=== PATIENT | female | born 1990 | race African-American/Black ===

== ENCOUNTER 2016-07-01 17:48 | Emergency (ER) | payer SELFPAY ==
[~2016-07-01] VITALS: Ht 157.5 cm; Wt 68.0 kg
[2016-07-01 18:37] VITALS: BP 133/79
[2016-07-01] MEDS ORDERED: TRAM1TAB49 PO (19:18)
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
== END 2016-07-01 19:19 | disposition home or self-care (01) ==
LOC: ER 17:48
DX: S60.221A Contusion of right hand, initial encounter (principal); J45.909 Unspecified asthma, uncomplicated; Y04.0XXA Assault by unarmed brawl or fight, initial encounter; Y93.89 Activity, other specified; Y92.89 Other specified places as the place of occurrence of the external cause; Y99.8 Other external cause status
CPT/HCPCS: 73130; 99284-25

== ENCOUNTER 2016-08-14 14:05 | Emergency (ER) | payer SELFPAY ==
[~2016-08-14] VITALS: Ht 157.5 cm; Wt 63.5 kg
[~2016-08-14 14:05] MED LIST: TRAM1TAB49 PO
[2016-08-14] MEDS ORDERED: IV NORMAL SALINE 1000ML BAG 1,000 ML IV SCH (14:52)
[2016-08-14] MEDS ORDERED: ACETAMINOPHEN 325 MG TABLET. PO ONE (15:00)
[2016-08-14] MEDS ORDERED: ONDANSETRON PF 4 MG/2 ML VIAL. IV ONE (15:00)
[2016-08-14 15:05] LABS: BILIRUBIN,URINE NEGATIVE (NEG); GLUCOSE,URINE NEGATIVE (NEG); NITRITE,URINE NEGATIVE (NEG); PROTEIN,URINE NEGATIVE (NEG-TRACE); UROBILINOGEN,URINE 0.2 mg/dL (0.2 mg/dL)
--- NOTE | 2016-08-14 15:05 | PHYS DOC ---
Past Medical History Past Medical History: Asthma Past Surgical History: No Surgical History Alcohol Use: Occasionally Drug Use: None Adult General Chief Complaint Chief Complaint: NAUSEA/VOMITING/DIARRHA HPI HPI Patient is a 26 year old female who presents with complaint of nausea, vomiting , and headaches for the past week. Patient states her symptoms have been persistent during this time. Patient denies any fevers or diarrhea associated with symptoms. Patient denies any sick contacts. Patient states that her last menstrual period was "4 months ago." Patient states that this is normal for her as she had been on Depo-Provera and states that she recently came off of it over 4 months ago. Patient does not feel that she has any chance of being though she does admit to unprotected sexual intercourse over the past 4 months. Patient denies any urinary symptoms. Patient states that she is having lower pelvic pain currently and has had thickened vaginal discharge but denies any vaginal bleeding. Patient rates her pain as 7 out of 10 currently. Patient has not taken any medications to help with her symptoms today. Review of Systems Review of Systems Constitutional: Denies fever or chills [] Eyes: Denies change in visual acuity, redness, or eye pain [] HENT: Denies nasal congestion or sore throat [] Respiratory: Denies cough or shortness of breath [] Cardiovascular: Denies chest pain or edema [] GI: Abdominal pain, nausea, vomiting, denies bloody stools or diarrhea [] : Denies dysuria or hematuria [] Musculoskeletal: Denies back pain or joint pain [] Integument: Denies rash or skin lesions [] Neurologic: Headache, denies focal weakness or sensory changes [] Current Medications Current Medications Current Medications Medications (Trade) Dose Ordered Sig/Jayme Start Time Stop Time Status Last Admin Dose Admin Acetaminophen (Tylenol) 650 mg 1X ONCE 08/14/16 15:00 08/14/16 15:03 DC 08/14/16 15:24 650 MG Metronidazole (Flagyl) 500 mg 1X ONCE 08/14/16 17:00 08/14/16 17:01 DC Ondansetron HCl 4 mg 4 mg 1X ONCE 08/14/16 15:00 08/14/16 15:03 DC 08/14/16 15:24 4 MG Sodium Chloride (Iv Sodium Chloride 0.9% 1000ml Bag) 1,000 ml @ 1,000 mls/hr Q1H 08/14/16 14:52 08/14/16 15:51 DC 08/14/16 15:23 1,000 MLS/HR Allergies Allergies Allergies Coded Allergies Type Severity Reaction Last Updated Verified No Known Drug Allergies 07/01/16 No Physical Exam Physical Exam Constitutional: Alert, afebrile, no acute distress. [] HENT: Normocephalic, atraumatic, bilateral external ears normal, oropharynx moist, no oral exudates, nose normal. [] Eyes: PERRLA, EOMI, conjunctiva normal, no discharge. [] Neck: Normal range of motion, no tenderness, supple, no stridor. [] Cardiovascular:Heart rate regular rhythm, no murmur [] Lungs & Thorax: Bilateral breath sounds clear to auscultation [] Abdomen: Bowel sounds normal, soft, suprapubic tenderness to palpation, no masses, no pulsatile masses. Pelvic: Normal external exam, no visualized gross blood or purulent discharge, midline tenderness to palpation on bimanual exam. [] Skin: Warm, dry, no erythema, no rash. [] Back: No tenderness, no CVA tenderness. [] Extremities: No tenderness, no cyanosis, no clubbing, ROM intact, no edema. [] Neurologic: Alert and oriented X 3, normal motor function, normal sensory function, no focal deficits noted. [] Current Patient Data Vital Signs Vital Signs Date Time Temp Pulse Resp B/P Pulse Ox O2 Delivery O2 Flow Rate FiO2 08/14/16 16:45 72 25 111/59 99 08/14/16 14:45 Room Air 08/14/16 14:35 98.5 98.5 Lab Values Laboratory Tests Test 08/14/16 13:41 08/14/16 14:35 08/14/16 15:01 POC Urine HCG, Qualitative Hcg positive (Negative) Urine Color Yellow Urine Clarity Clear Urine pH 6.0 Urine Specific [place] 1.025 Urine Protein Negativemg/dL (NEG-TRACE) Urine Glucose (UA) Negativemg/dL (NEG) Urine Ketones (Stick) Negativemg/dL (NEG) Urine Blood Negative (NEG) Urine Nitrite Negative (NEG) Urine Bilirubin Negative (NEG) Urine Urobilinogen Dipstick 0.2mg/dL (0.2 mg/dL) Urine Leukocyte Esterase Negative (NEG) Urine RBC 0/HPF (0-2) Urine WBC 1-4/HPF (0-4) Urine Squamous Epithelial Cells Mod/LPF Urine Bacteria Few/HPF (0-FEW) Urine Mucus Slight/LPF White Blood Count 12.3x10^3/uL (4.0-11.0) H Red Blood Count 3.48x10^6/uL (3.50-5.40) L Hemoglobin 10.8g/dL (12.0-15.5) L Hematocrit 31.7% (36.0-47.0) L Mean Corpuscular Volume 91fL (79-100) Mean Corpuscular Hemoglobin 31pg (25-35) Mean Corpuscular Hemoglobin Concent 34g/dL (31-37) Red Cell Distribution Width 13.0% (11.5-14.5) Platelet Count 324x10^3/uL (140-400) Neutrophils (%) (Auto) 78% (31-73) H Lymphocytes (%) (Auto) 13% (24-48) L Monocytes (%) (Auto) 7% (0-9) Eosinophils (%) (Auto) 2% (0-3) Basophils (%) (Auto) 1% (0-3) Neutrophils # (Auto) 9.5x10^3uL (1.8-7.7) H Lymphocytes # (Auto) 1.5x10^3/uL (1.0-4.8) Monocytes # (Auto) 0.8x10^3/uL (0.0-1.1) Eosinophils # (Auto) 0.3x10^3/uL (0.0-0.7) Basophils # (Auto) 0.1x10^3/uL (0.0-0.2) Maternal Serum HCG Beta Subunit 67000qLA/mL (0-6) H Sodium Level 138mmol/L (136-145) Potassium Level 3.8mmol/L (3.5-5.1) Chloride Level 103mmol/L (98-107) Carbon Dioxide Level 24mmol/L (21-32) Anion Gap 11 (6-14) Blood Urea Nitrogen 8mg/dL (7-20) Creatinine 0.6mg/dL (0.6-1.0) Estimated GFR (Cockcroft-Gault) 145.1 BUN/Creatinine Ratio 13 (6-20) Glucose Level 79mg/dL (70-99) Calcium Level 8.8mg/dL (8.5-10.1) Magnesium Level 1.8mg/dL (1.8-2.4) Total Bilirubin 0.2mg/dL (0.2-1.0) Aspartate Amino Transferase (AST) 12U/L (15-37) L Alanine Aminotransferase (ALT) 23U/L (14-59) Alkaline Phosphatase 57U/L (46-116) Total Protein 7.7g/dL (6.4-8.2) Albumin 3.3g/dL (3.4-5.0) L Albumin/Globulin Ratio 0.8 (1.0-1.7) L Laboratory Tests 08/14/16 15:01 Laboratory Tests 08/14/16 15:01 Microbiology 08/14/16 Wet Prep - Final, Complete EKG EKG Not performed [] Radiology/Procedures Radiology/Procedures [facility] [address] [place], [place] [id number] IMAGING REPORT Signed PATIENT: APARNA BANGURA ACCOUNT: [id number] : 1990 LOCATION: ER AGE: 26 SEX: F EXAM STATUS: REG ER ORD. PHYSICIAN: SHANAE ORTEGA MD REASON: last menstrual period 4 months ago, positive test PROCEDURE: PREG 1ST TRIMESTER Pelvic ultrasound, 08/14/2016: History: Nausea, positive test Transabdominal scans were obtained. The uterus is enlarged. It contains a single fetus demonstrating a crown-rump length of 6.9 cm. This suggests a gestational age of 13 weeks and 1 day, yielding a sonographic EDC of 02/18/2017. activity and heart motion were seen. The heart rate is 178 bpm. The placenta lies posteriorly. A normal amount of amniotic fluid is present. There is moderate echogenic myometrial thickening along the posterior aspect of the placenta. There is blood flow in this region. The features suggest a uterine fibroid. The cervix is not adequately delineated. IMPRESSION: 1. Single viable intrauterine fetus of 13 weeks gestational age. 2. Myometrial thickening posteriorly suggesting a uterine fibroid. Retroplacental hemorrhage is less likely. Sonographic follow-up is suggested. DICTATED and SIGNED BY: ROS CORNELL MD DATE: 08/14/16 1620 CC: SHANAE ORTEGA MD; NO PCP ~ [] Course & Med Decision Making Course & Med Decision Making Pertinent Labs and Imaging studies reviewed. (See chart for details) Patient's ultrasound showed that the patient was 13 weeks and 1 day estimated gestational age. Patient was also found to have evidence of bacterial vaginosis and started on Flagyl in the emergency department. Patient will be discharged home with a seven-day course of Flagyl and was referred to Dr. Keller of [facility] for follow-up. Advised return emergency department for any worsening symptoms. Patient voiced understanding and in agreement with treatment plan. Dragon Disclaimer Dragon Disclaimer This electronic medical record was generated, in whole or in part, using a voice recognition dictation system. Departure Departure Impression: Primary Impression: Intrauterine Additional Impressions: Bacterial vaginosis Abdominal pain during Disposition: HOME, SELF-CARE Condition: IMPROVED Referrals: NO PCP (PCP) HEIDY KELLER MD Patient Instructions: Abdominal Pain During , Bacterial Vaginosis Additional Instructions: Follow-up in one week with Dr. Keller of [facility] for care. Your ultrasound showed that at today's appointment you are 13 weeks and 1 day into your . Return to the emergency department for any worsening symptoms. Scripts Ondansetron (Zofran Odt)4 Mg Tab.rapdis1 Tab SL Q8HRS PRN NAUSEA/VOMITING #15 TAB Prov:SHANAE ORTEGA MD 08/14/16 Metronidazole (Flagyl)500 Mg Tablet1 Tab PO BID #14 TAB Prov:SHANAE ORTEGA MD 08/14/16 Problem Qualifiers Additional Impressions: Abdominal pain during Trimester: first trimester Qualified Code: O26.891 - Other specified related conditions, first trimester SHANAE ORTEGA MD Aug 14, 2016 15:05
[2016-08-14 15:11] LABS: BASO # 0.1 x10^3/uL (0.0-0.2); BASO % 1 % (0-3); EOS % 2 % (0-3); HEMATOCRIT 31.7 % (36.0-47.0); HEMOGLOBIN 10.8 g/dL (12.0-15.5); LYMPH # 1.5 x10^3/uL (1.0-4.8); LYMPH % 13 % (24-48); MEAN CORPUSCULAR HEMOGLOBIN 31 pg (25-35); MEAN CORPUSCULAR HGB CONC 34 g/dL (31-37); MEAN CORPUSCULAR VOLUME 91 fL (79-100); MONO % 7 % (0-9); NEUT % 78 % (31-73); PLATELET COUNT 324 x10^3/uL (140-400); RED BLOOD COUNT 3.48 x10^6/uL (3.50-5.40); WHITE BLOOD COUNT 12.3 x10^3/uL (4.0-11.0)
[2016-08-14 15:19] LABS: BACTERIA,URINE FEW /HPF (0-FEW); RBC,URINE 0 /HPF (0-2)
[2016-08-14 15:20] LABS: SQUAMOUS EPITHELIAL CELL,UR MOD /LPF
[2016-08-14 15:23] LABS: CALCIUM 8.8 mg/dL (8.5-10.1); CREATININE 0.6 mg/dL (0.6-1.0); GFR 145.1; POTASSIUM 3.8 mmol/L (3.5-5.1)
[2016-08-14 15:29] LABS: ALBUMIN 3.3 g/dL (3.4-5.0); ALBUMIN/GLOBULIN RATIO 0.8 (1.0-1.7); MAGNESIUM 1.8 mg/dL (1.8-2.4); TOTAL BILIRUBIN 0.2 mg/dL (0.2-1.0); TOTAL PROTEIN 7.7 g/dL (6.4-8.2)
--- NOTE | 2016-08-14 16:32 | RAD ---
Pelvic ultrasound, 08/14/2016: History: Nausea, positive test Transabdominal scans were obtained. The uterus is enlarged. It contains a single fetus demonstrating a crown-rump length of 6.9 cm. This suggests a gestational age of 13 weeks and 1 day, yielding a sonographic EDC of 02/18/2017. activity and heart motion were seen. The heart rate is 178 bpm. The placenta lies posteriorly. A normal amount of amniotic fluid is present. There is moderate echogenic myometrial thickening along the posterior aspect of the placenta. There is blood flow in this region. The features suggest a uterine fibroid. The cervix is not adequately delineated. IMPRESSION: 1. Single viable intrauterine fetus of 13 weeks gestational age. 2. Myometrial thickening posteriorly suggesting a uterine fibroid. Retroplacental hemorrhage is less likely. Sonographic follow-up is suggested.
[2016-08-14 16:45] VITALS: BP 111/59
[2016-08-14] MEDS ORDERED: METR500T PO (16:47)
[2016-08-14] MEDS ORDERED: ONDA4TAB10 SL (16:48)
[2016-08-14] MEDS ORDERED: METRONIDAZOLE 500 MG TABLET. PO ONE (17:00)
== END 2016-08-14 16:57 | disposition home or self-care (01) ==
LOC: ER 14:05
DX: O23.591 Infection of other part of genital tract in pregnancy, first trimester (principal); N76.0 Acute vaginitis; B96.89 Other specified bacterial agents as the cause of diseases classified elsewhere; O26.891 Other specified pregnancy related conditions, first trimester; R51 Headache; O99.511 Diseases of the respiratory system complicating pregnancy, first trimester; J45.909 Unspecified asthma, uncomplicated; Z3A.13 13 weeks gestation of pregnancy
CPT/HCPCS: 36415; 76801; 80053; 81001; 81025; 83735; 84702; 85027; 86850; 86900; 86901; 87491; 87591; 96361; 96374; 99285; J2405; J7030; Q0111

== ENCOUNTER 2017-04-28 16:58 | Emergency (ER) | payer OTHER ==
[~2017-04-28] VITALS: Ht 157.5 cm; Wt 64.4 kg
[~2017-04-28 16:58] MED LIST changes: +METR500T PO; +ONDA4TAB10 SL; -TRAM1TAB49 PO; +TRAM1TAB56 PO
[2017-04-28] MEDS ORDERED: LIDOCAINE 1% PF 2 ML VIAL. INJ ONE (17:30)
[2017-04-28 17:37] VITALS: BP 139/83
[2017-04-28] MEDS ORDERED: SULF1TAB24 PO (17:38)
[2017-04-28] MEDS ORDERED: IBUP-1060 PO (17:38)
--- NOTE | 2017-04-28 17:39 | PHYS DOC ---
Past Medical History Past Medical History: Asthma Past Surgical History: No Surgical History Alcohol Use: Occasionally Drug Use: None Adult General Chief Complaint Chief Complaint: ABSCESS HPI HPI Patient is a 27 year old [f__sex] who presents with right medial thigh abscess. Patient reports she's had symptoms for 3 days and she has gotten progressively worse. She reports no fever.[] Review of Systems Review of Systems Constitutional: Denies fever or chills [] Eyes: Denies change in visual acuity, redness, or eye pain [] HENT: Denies nasal congestion or sore throat [] Respiratory: Denies cough or shortness of breath [] Cardiovascular: No additional information not addressed in HPI [] GI: Denies abdominal pain, nausea, vomiting, bloody stools or diarrhea [] : Denies dysuria or hematuria [] Musculoskeletal: Denies back pain or joint pain [] Integument: Abscess Neurologic: Denies headache, focal weakness or sensory changes [] Endocrine: Denies polyuria or polydipsia [] All other systems were reviewed and found to be within normal limits, except as documented in this note. Current Medications Current Medications Current Medications Medications (Trade) Dose Ordered Sig/Jayme Start Time Stop Time Status Last Admin Dose Admin Lidocaine HCl (Xylocaine-Mpf 1% Vial) 2 ml 1X ONCE 04/28/17 17:30 04/28/17 17:31 DC Allergies Allergies Allergies Coded Allergies Type Severity Reaction Last Updated Verified No Known Drug Allergies 07/01/16 No Physical Exam Physical Exam Constitutional: Well developed, well nourished, no acute distress, non-toxic appearance. [] Cardiovascular:Heart rate regular rhythm, no murmur [] Lungs & Thorax: Bilateral breath sounds clear to auscultation [] Abdomen: Bowel sounds normal, soft, no tenderness, no masses, no pulsatile masses. [] Skin: Warm, dry, no erythema, right medial thigh with a 2 cm area of fluctuance without erythema. Is mildly tender to palpate. No lymphadenopathy noted in the inguinal region Back: No tenderness, no CVA tenderness. [] Extremities: No tenderness, no cyanosis, no clubbing, ROM intact, no edema. [] EKG EKG [] Radiology/Procedures Radiology/Procedures Procedure note: Right medial thigh, fact that area, cleansed with Betadine, anesthetized with 1 mL of 1% lidocaine. #11 blade utilize to incise the abscess. Small amount of purulent discharge, wound copiously irrigated. Wound dressed with 4 x 4's. Patient tolerated well.[] Course & Med Decision Making Course & Med Decision Making Pertinent Labs and Imaging studies reviewed. (See chart for details) [] Dragon Disclaimer Dragon Disclaimer This electronic medical record was generated, in whole or in part, using a voice recognition dictation system. Departure Departure Impression: Primary Impression: Abscess Disposition: 01 HOME, SELF-CARE Condition: STABLE Referrals: UNKNOWN PCP NAME (PCP) [facility], [facility] Patient Instructions: Abscess Additional Instructions: Keep area clean and dry, hot packs to affected area every 4 hours for 15 minutes for the next 3 days. Scripts Ibuprofen (IBUPROFEN) 800 Mg Tablet 800 MG PO PRN Q8HRS Y for PAIN, #20 TAB Prov: REEMA HOWE APRN 04/28/17 Sulfamethoxazole/Trimethoprim (BACTRIM DS TABLET) 1 Each Tablet 1 TAB PO BID, #20 TAB Prov: REEMA HOWE APRN 04/28/17 REEMA HOWE APRN Apr 28, 2017 17:39
== END 2017-04-28 17:47 | disposition home or self-care (01) ==
LOC: ER 16:58
DX: L02.415 Cutaneous abscess of right lower limb (principal); J45.909 Unspecified asthma, uncomplicated
CPT/HCPCS: 10060; 99283-25

== ENCOUNTER 2018-04-22 15:04 | Emergency (ER) | payer OTHER ==
[~2018-04-22] VITALS: Ht 157.5 cm; Wt 63.5 kg
[~2018-04-22 15:04] MED LIST changes: +IBUP-1060 PO; +SULF1TAB24 PO
[2018-04-22 15:21] VITALS: BP 141/89
[2018-04-22] MEDS ORDERED: LIDOCAINE WITH 8.4% SOD BICARB 3 ML DISP.SYRIN. INJ ONE (15:30)
[2018-04-22] MEDS ORDERED: HYDR-3164 PO (16:12)
[2018-04-22] MEDS ORDERED: SULF1TAB24 PO (16:12)
--- NOTE | 2018-04-22 16:12 | PHYS DOC ---
Past Medical History Past Medical History: Asthma Past Surgical History: No Surgical History Alcohol Use: Occasionally Drug Use: None Adult General Chief Complaint Chief Complaint: ABSCESS HPI HPI Patient is a 27 year old female who presents with a large abscess to her right inner thigh. She states it is extremely painful for her to walk due to the swelling. She does have a history of having an abscess in the past. She is 3 weeks . She is not breast-feeding. Review of Systems Review of Systems Constitutional: Denies fever or chills [] Respiratory: Denies cough or shortness of breath [] Cardiovascular: No additional information not addressed in HPI [] GI: Denies abdominal pain, nausea, vomiting, bloody stools or diarrhea [] : Denies dysuria or hematuria [] Musculoskeletal: Denies back pain or joint pain [] Integument: See history of present illness Neurologic: Denies headache, focal weakness or sensory changes [] Endocrine: Denies polyuria or polydipsia [] All other systems were reviewed and found to be within normal limits, except as documented in this note. Current Medications Current Medications Current Medications Medications (Trade) Dose Ordered Sig/Jayme Start Time Stop Time Status Last Admin Dose Admin Lidocaine/Sodium Bicarbonate (Buffered Lidocaine 1%) 3 ml 1X ONCE 04/22/18 15:30 04/22/18 15:33 DC 04/22/18 15:30 3 ML Allergies Allergies Allergies Coded Allergies Type Severity Reaction Last Updated Verified No Known Drug Allergies 07/01/16 No Physical Exam Physical Exam Constitutional: Well developed, well nourished, no acute distress, non-toxic appearance. [] HENT: Normocephalic, atraumatic, bilateral external ears normal, oropharynx moist, no oral exudates, nose normal. [] Eyes: PERRLA, EOMI, conjunctiva normal, no discharge. [] Neck: Normal range of motion, no tenderness, supple, no stridor. [] Cardiovascular:Heart rate regular rhythm, no murmur [] Lungs & Thorax: Bilateral breath sounds clear to auscultation [] Abdomen: Bowel sounds normal, soft, no tenderness, no masses, no pulsatile masses. [] Skin: 3 cm abscess with induration and fluctuance noted to the right inner thigh Back: No tenderness, no CVA tenderness. [] Extremities: No tenderness, no cyanosis, no clubbing, ROM intact, no edema. [] Neurologic: Alert and oriented X 3, normal motor function, normal sensory function, no focal deficits noted. [] Psychologic: Affect normal, judgement normal, mood normal. [] Current Patient Data Vital Signs Vital Signs Date Time Temp Pulse Resp B/P (MAP) Pulse Ox O2 Delivery O2 Flow Rate FiO2 04/22/18 15:21 98.5 110 18 141/89 (106) 99 Room Air 98.5 EKG EKG [] Radiology/Procedures Radiology/Procedures Abscess Incision and Drainage with irrigation by me: Location: Eye in her thigh Anesthesia: Local 1% buffered Lidocaine Technique: The abscess was opened with an 11 blade after instillation of buffered lidocaine. Approximately 15 mls of purulent drainage was expressed from the abscess. Packing: None Complications: Neurovascularly intact post procedure 48 hour wound check. Scar minimization instructions given. Course & Med Decision Making Course & Med Decision Making Pertinent Labs and Imaging studies reviewed. (See chart for details) [] Dragon Disclaimer Dragon Disclaimer This electronic medical record was generated, in whole or in part, using a voice recognition dictation system. Departure Departure Impression: Primary Impression: Abscess Disposition: 01 HOME, SELF-CARE Condition: STABLE Referrals: UNKNOWN PCP NAME (PCP) Patient Instructions: Abscess Additional Instructions: Take the medication as prescribed. Do not drive or operate heavy machinery while taking the pain medication. Follow-up with your primary care provider in 3 days if not improving or return to the emergency department if worsening. Scripts Hydrocodone/Apap 5-325 (NORCO 5-325 TABLET) 1 Each Tablet 1 TAB PO PRN Q6HRS PRN for PAIN, #14 TAB 0 Refills Prov: JIMI ANNA APRN 04/22/18 Sulfamethoxazole/Trimethoprim (BACTRIM DS TABLET) 1 Each Tablet 1 TAB PO BID for infection, #20 TAB Prov: JIMI ANNA APRN 04/22/18 JIMI ANNA APRN Apr 22, 2018 16:12
== END 2018-04-22 16:33 | disposition home or self-care (01) ==
LOC: ER 15:04
DX: O90.89 Other complications of the puerperium, not elsewhere classified (principal); L02.415 Cutaneous abscess of right lower limb; O99.53 Diseases of the respiratory system complicating the puerperium; J45.909 Unspecified asthma, uncomplicated
CPT/HCPCS: 10060; 99283-25